=== PATIENT | male | born 1945 | race Asian ===

== ENCOUNTER 2020-05-27 05:04 | Day surgery (SDC) | payer OTHER ==
[2020-05-23 16:40] VITALS: BMI 22.4
[2020-05-27 14:45] VITALS: TEMP 97.7
[2020-05-27 15:14] VITALS: BP 131/78; PULSE 61
== END 2020-05-27 15:12 | disposition home or self-care (01) ==
LOC: JASU-ENDO 05:04
PROVIDERS: ATTEND Internal Medicine Cardiovascular Disease
PROC: B246ZZ4 Ultrasonography of Right and Left Heart, Transesophageal (ICD-10-PCS; principal; 2020-05-27 13:00)
DX: D15.1 Benign neoplasm of heart (principal); I10 Essential (primary) hypertension
CPT/HCPCS: 93312; 93325